=== PATIENT | female | born 1985 | race African-American/Black ===

== ENCOUNTER 2016-06-25 23:49 | Emergency (ER) | payer SELFPAY ==
[2016-06-26 00:32] LABS: Pregnancy Test - Urine (BHCG) POSITIVE (NEGATIVE)
[2016-06-26 00:33] LABS: Pregu Control Bar Appear? YES (CONTROL BAR); Specific Gravity 1.025 (1.002-1.036)
== END 2016-06-26 00:46 | disposition home or self-care (01) ==
LOC: MADERS 23:49
DX: Z32.01 Encounter for pregnancy test, result positive (principal); I10 Essential (primary) hypertension; F32.9 Major depressive disorder, single episode, unspecified; Z79.899 Other long term (current) drug therapy
CPT/HCPCS: 81025; 99283

== ENCOUNTER 2016-08-07 09:14 | Outpatient (CLI) | payer OTHER | END 2016-08-07 09:15 | disposition home or self-care (01) | LOC: MADLAB 09:14 | PROVIDERS: ATTEND Family Medicine | DX: Z13.79 Encounter for other screening for genetic and chromosomal anomalies (principal) ==

== ENCOUNTER 2016-10-07 04:43 | Emergency (ER) | payer OTHER ==
[2016-10-07 05:14] LABS: Clarity Hazy (Clear); Glucose, Urine (Dipstick) Negative (Negative); Leukocyte Small (Negative); Nitrite Negative (Negative); Protein, Urine (Dipstick) Negative (Neg-Trace); pH, Urine 6.5 (5.0-9.0)
[2016-10-07 05:15] LABS: Bacteria/HPF 3+ HPF (None Seen); Bilirubin Negative (Negative); Blood, Urine Small (Negative); Transitional Epithelial 0-3 HPF (0-3); Urobilinogen 0.2 mg/dL (0.2-1.0); WBC/HPF 21-50 HPF (0-3); Yeast-All Forms 1+ HPF (None Seen)
[2016-10-07] MEDS ORDERED: Acetaminophen 500 MG TAB ONE (05:20)
[2016-10-07 06:15] LABS: ALT (SGPT) 12 U/L (8-55); Albumin 3.8 g/dL (3.5-5.0); Alkaline Phosphatase 55 U/L (40-150); Anion Gap 15 mmol/L (10-20); BUN (Urea Nitrogen) 6 mg/dL (7.0-18.7); Bilirubin, Total Less than 0.3 mg/dL (0.2-1.2); Calc. Creatinine Clearance 0 mL/min (70-130); Calcium 9.8 mg/dL (7.8-10.44); Carbon Dioxide 19 mmol/L (22-29); Chloride 108 mmol/L (98-107); Estimated GFR-MDRD Greater than 90; Globulin 3.4 g/dL (2.4-3.5); Glucose 86 mg/dL (70-105); Potassium 3.3 mmol/L (3.5-5.1); Protein, Total 7.2 g/dL (6.0-8.3); Sodium 139 mmol/L (136-145)
[2016-10-07 06:21] LABS: Hemoglobin 10.2 g/dL (12.0-16.0); Mean Corpuscular HGB CONC 31.9 g/dL (32.0-36.0); Mean Corpuscular Hemoglobin 27.2 pg (27.0-31.0); Mean Corpuscular Volume 85.3 fl (81.0-99.0); Mean Platelet Volume 9.4 fL (7.4-10.4); Platelet Count 201 thou/uL (130-400); RBC Distribution Width 13.1 % (11.5-14.5); Red Blood Cell (RBC) Count 3.75 mill/uL (4.20-5.40); White Blood Cell (WBC) Count 11.1 thou/uL (4.8-10.8)
[2016-10-07 06:36] LABS: Anisocytosis SLIGHT = 6-15 cells (100X) (0-5/hpf); Lymphocytes 27 % (21-51); MDiff Complete? YES; Manual Diff?? YES; Monocytes 5 % (0-10); Neutrophil 68 % (42-75); PLT Morphology Comment Appears Adequate
[2016-10-07 06:38] LABS: AST (SGOT) 30 U/L (5-34)
[2016-10-07] MEDS ORDERED: Sodium Chloride 0.9% 1,000 ML BAG ONE (06:50)
[2016-10-07 07:38] LABS: Bilirubin Negative (Negative); Blood, Urine Trace (Negative); Clarity Clear (Clear); Glucose, Urine (Dipstick) Negative (Negative); Leukocyte Negative (Negative); Nitrite Negative (Negative); Protein, Urine (Dipstick) Negative (Neg-Trace); Urobilinogen 0.2 mg/dL (0.2-1.0)
[2016-10-07 07:40] LABS: Bacteria/HPF Rare-Few HPF (None Seen); RBC/HPF 0-3 HPF (0-3); Squamous Epithelial 0-3 HPF (0-3); WBC/HPF 0-3 HPF (0-3)
--- NOTE | 2016-10-07 08:33 | ULT ---
PRELIMINARY REPORT/[facility]/EMERGENCY AFTER HOURS PROCEDURE: EXAM: US Retroperitoneal Limited, Renal CLINICAL HISTORY: 31 years old, female; Pain; Abdominal pain; Flank; Right; ; Patient HX: Rt flank pain since yesterday; Progressively getting worse; Did bilateral renal ultrasound; Additional info: Patient is 23 weeks ; She is having rt flank pain since yesterday, progressively getting worse TECHNIQUE: Real-time ultrasound of the retroperitoneum (limited) with image documentation. COMPARISON: No relevant prior studies available. FINDINGS: Right kidney: The right kidney measures 11.2 x 3.9 x 5.4 cm. No stones. No hydronephrosis. Left kidney: The left kidney measures 10.4 x 5.6 x 2.8 cm. No stones. No hydronephrosis. Bladder: The urinary bladder measures 2.9 x 2.6 x 2.9 cm (19 mL). After voiding the urinary bladder measures 1.3 x 1.3 x 2.0 cm (1.8 mL). Other findings: There is an intrauterine gestation with fetus in vertex presentation and posterior/f undal placenta. The heart rate is 155 bpm. IMPRESSION: 1. No significant abnormality identified. 2. Intrauterine gestation. Thank you for allowing us to participate in the care of your patient. Dictated and Authenticated by: Gopi Oakes MD 10/07/2016 7:21 AM Central Time ([place] \T\ [place]) FINAL REPORT EMERGENT AFTER HOURS STUDY ULTRASOUND RETROPERITONEUM COMPLETE: (RENAL) HISTORY: A 31-year-old female, 23 weeks , with acute right flank pain. FINDINGS: An intrauterine gestation is visualized. Maternal cervix is poorly visualized. The urinary bladder volume is small initially, approximately 20 mL, and is nearly empty after voiding, at the end of th e study. At the lower pole of the right kidney, there is a small, hyperechoic, approximately 3 to 7 mm focus, producing acoustic shadowing, which is probably a calculus. It may correspond to the tin y lower pole calculus demonstrated on 11/18/[address] This is a minor disagreement with the preliminary report by [facility]. There is no major disagreement with the [facility] preliminary report s tatement, stating that there is no hydronephrosis bilaterally. The right kidney measures 11 x 5.5 x 4 cm. The left kidney measures 10.5 x 4.5 x 5.5 cm. No moderate sized or large solid or cystic geo l mass is identified. IMPRESSION: 1. No obstructive uropathy. No hydronephrosis. 2. Possible right nephrolithiasis: questionable small right renal lower pole calculus. ANNABELLE Voss POS: [facility]
== END 2016-10-07 08:02 | disposition home or self-care (01) ==
LOC: MADERS 04:43
DX: O99.89 Other specified diseases and conditions complicating pregnancy, childbirth and the puerperium (principal); R10.9 Unspecified abdominal pain; O99.342 Other mental disorders complicating pregnancy, second trimester; F32.9 Major depressive disorder, single episode, unspecified; O16.2 Unspecified maternal hypertension, second trimester; Z3A.23 23 weeks gestation of pregnancy
CPT/HCPCS: 36415; 51701; 76770; 80053; 81003; 81015; 85025; 87086; 96360; A4353; J7050

== ENCOUNTER 2016-10-30 22:12 | Outpatient (CLI) | payer OTHER | END 2016-10-30 22:13 | disposition home or self-care (01) | LOC: MADLABBHPM 22:12 | PROVIDERS: ATTEND Family Medicine | DX: O09.892 Supervision of other high risk pregnancies, second trimester (principal) | CPT/HCPCS: 87086 ==

== ENCOUNTER 2016-11-13 14:53 | Outpatient (CLI) | payer OTHER | END 2016-11-13 14:54 | disposition home or self-care (01) | LOC: MADLABBHPM 14:53 | PROVIDERS: ATTEND Family Medicine | DX: O09.893 Supervision of other high risk pregnancies, third trimester (principal) | CPT/HCPCS: 36415; 87077; 87086; 87480; 87510; 87660 ==

== ENCOUNTER 2016-11-27 11:34 | Emergency (ER) | payer OTHER ==
[~2016-11-27 11:34] MED LIST: Sodium Chloride 0.9% 1,000 ML BAG ONE
[2016-11-27] MEDS ORDERED: Magnesium Sulfate 2 GM/NS 0.9% 50 ML BAG ONE (12:03)
== END 2016-11-27 12:23 | disposition short-term general hospital (02) ==
LOC: MADERS 11:34
DX: O14.03 Mild to moderate pre-eclampsia, third trimester (principal); I10 Essential (primary) hypertension; F32.9 Major depressive disorder, single episode, unspecified
CPT/HCPCS: 96361; 96374; J3475; J7050

== ENCOUNTER 2017-01-10 07:15 | Emergency (ER) | payer OTHER ==
[2017-01-10] MEDS ORDERED: HYDROcodone/Acetaminophen 10/325 mg Tablet ONE (07:56)
[2017-01-10] MEDS ORDERED: cefTRIAXone\\ROCEPHIN 1 GM VIAL ONE (07:56)
[2017-01-10] MEDS ORDERED: predniSONE 20 MG TAB ONE (07:57)
[2017-01-10] MEDS ORDERED: Lidocaine 1% 20 ML MDV ONE (08:38)
== END 2017-01-10 08:18 | disposition home or self-care (01) ==
LOC: MADERS 07:15
DX: B34.9 Viral infection, unspecified (principal); J02.9 Acute pharyngitis, unspecified; I10 Essential (primary) hypertension; F32.9 Major depressive disorder, single episode, unspecified
CPT/HCPCS: 96372; J0696; J2001; J7506

== ENCOUNTER 2017-12-06 23:14 | Emergency (ER) | payer BC, OTHER ==
[2017-12-06 23:53] LABS: Bilirubin Negative (Negative); Blood, Urine Negative (Negative); Glucose, Urine (Dipstick) Negative (Negative); Leukocyte Trace (Negative); Nitrite Positive (Negative); Protein, Urine (Dipstick) Trace mg/dL (Neg-Trace); Specific Gravity, Urine 1.025 (1.005-1.030); Urobilinogen 0.2 mg/dL (0.2-1.0); pH, Urine 6.5 (5.0-9.0)
[2017-12-06 23:54] LABS: Bacteria/HPF 4+ HPF (None Seen); Clarity Hazy (Clear); RBC/HPF 0-3 HPF (0-3); Squamous Epithelial 0-3 HPF (0-3)
[2017-12-06 23:55] LABS: Pregnancy Test - Urine (BHCG) Negative (Negative); Pregu Control Background? CLEAR/WHITE (CLR/WHITE); Pregu Control Bar Appear? YES (CONTROL BAR); Specific Gravity 1.025 (1.002-1.036)
--- NOTE | 2017-12-06 23:55 | RAD ---
CHEST ONE VIEW: HISTORY: Syncope. FINDINGS: The cardiac silhouette is magnified by projection. The pulmonary vasculature is unremarkable. The m ediastinum is midline, allowing for slight rightward rotation of the patient. No lobar consolidation or evidence of pneumothorax. 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 IMPRESSION: No active cardiopulmonary abnormalities are demonstrated. POS: [facility]
[2017-12-07 00:15] LABS: #Basophils 0.1 thou/uL (0.0-0.2); #Eosinphils 0.1 thou/uL (0.0-0.7); #Lymphocytes 2.2 thou/uL (1.20-3.40); #Monocytes 0.5 thou/uL (0.11-0.59); #Neutrophils 4.7 thou/uL (1.40-6.50); %Basophils 1.6 % (0.0-1.0); %Eosinophils 1.6 % (0.0-10.0); %Lymphocytes 28.8 % (21.0-51.0); %Monocytes 6.7 % (0.0-10.0); %Neutrophils 61.2 % (42.0-75.0); Hemoglobin 12.9 g/dL (12.0-16.0); Mean Corpuscular HGB CONC 30.9 g/dL (32.0-36.0); Mean Corpuscular Hemoglobin 25.9 pg (27.0-31.0); Mean Corpuscular Volume 83.8 fL (78.0-98.0); Mean Platelet Volume 9.2 fL (7.4-10.4); Platelet Count 186 thou/uL (130-400); RBC Distribution Width 13.7 % (11.5-14.5); Red Blood Cell (RBC) Count 4.97 mill/uL (4.20-5.40); White Blood Cell (WBC) Count 7.6 thou/uL (4.8-10.8)
[2017-12-07 00:31] LABS: ALT (SGPT) 10 U/L (8-55); AST (SGOT) 10 U/L (5-34); Albumin 4.7 g/dL (3.5-5.0); Alkaline Phosphatase 48 U/L (40-150); Anion Gap 13 mmol/L (10-20); BUN (Urea Nitrogen) 11 mg/dL (7.0-18.7); Bilirubin, Total 0.4 mg/dL (0.2-1.2); Calc. Creatinine Clearance 0 mL/min (70-130); Calcium 10.1 mg/dL (7.8-10.44); Carbon Dioxide 23 mmol/L (22-29); Chloride 109 mmol/L (98-107); Estimated GFR-MDRD Greater than 90; Globulin 2.8 g/dL (2.4-3.5); Glucose 84 mg/dL (70-105); Potassium 3.5 mmol/L (3.5-5.1); Protein, Total 7.5 g/dL (6.0-8.3); Sodium 141 mmol/L (136-145)
[2017-12-07 00:32] LABS: CKMB 0.9 ng/mL (0-6.6); Troponin I Less than 0.010 ng/mL (< 0.028)
[2017-12-07] MEDS ORDERED: Nitrofurantoin Monohyd/M-Cryst 100 MG CAP ONE (00:33)
== END 2017-12-07 00:40 | disposition home or self-care (01) ==
LOC: MADERS 23:14
DX: R55 Syncope and collapse (principal); N39.0 Urinary tract infection, site not specified; R42 Dizziness and giddiness; I10 Essential (primary) hypertension; F32.9 Major depressive disorder, single episode, unspecified
CPT/HCPCS: 36415; 71045; 80053; 81003; 81015; 81025; 82553; 84484; 85025; 85379; 87077; 87086; 87186; 93005; 94760

== ENCOUNTER 2019-02-17 06:18 | Emergency (ER) | payer BC, OTHER ==
[2019-02-17] MEDS ORDERED: Sodium Chloride 0.9% 1,000 ML ONE (06:58)
[2019-02-17] MEDS ORDERED: hydrALAZINE 20 MG/ML VIAL ONE (06:58)
[2019-02-17 07:19] LABS: Hemoglobin 13.4 g/dL (12.0-16.0); Mean Corpuscular HGB CONC 29.4 g/dL (32.0-36.0); Mean Corpuscular Hemoglobin 24.4 pg (27.0-31.0); Mean Corpuscular Volume 83.1 fL (78.0-98.0); Platelet Count 187 thou/uL (130-400); White Blood Cell (WBC) Count 7.5 thou/uL (4.8-10.8)
[2019-02-17 07:23] LABS: Prothrombin Time 13.1 SEC (12.0-14.7)
[2019-02-17 07:27] LABS: ALT (SGPT) 12 U/L (8-55); AST (SGOT) 16 U/L (5-34); Albumin 3.1 g/dL (3.5-5.0); Alkaline Phosphatase 312 U/L (40-110); Anion Gap 11 mmol/L (10-20); BUN (Urea Nitrogen) 11 mg/dL (7.0-18.7); Bilirubin, Total 0.2 mg/dL (0.2-1.2); Calc. Creatinine Clearance 0 mL/min (70-130); Calcium 9.5 mg/dL (7.8-10.44); Carbon Dioxide 23 mmol/L (22-29); Chloride 108 mmol/L (98-107); Estimated GFR-MDRD 85; Globulin 3.1 g/dL (2.4-3.5); Glucose 82 mg/dL (70-105); Potassium 4.2 mmol/L (3.5-5.1); Protein, Total 6.2 g/dL (6.0-8.3); Sodium 138 mmol/L (136-145)
[2019-02-17 07:34] LABS: Lymphocytes 31 % (21-51); MDiff Complete? YES; Monocytes 4 % (0-10); Neutrophil 65 % (42-75); Platelet Morphology Comment Appears Adequate; RBC Morphology Normal
== END 2019-02-17 07:20 | disposition short-term general hospital (02) ==
LOC: MADERS 06:18
DX: O60.03 Preterm labor without delivery, third trimester (principal); O13.3 Gestational [pregnancy-induced] hypertension without significant proteinuria, third trimester; O99.343 Other mental disorders complicating pregnancy, third trimester; F32.9 Major depressive disorder, single episode, unspecified; Z3A.39 39 weeks gestation of pregnancy
CPT/HCPCS: 80053; 85025; 85610; 96374; J0360; J7050

== ENCOUNTER 2021-10-30 15:00 | Emergency (ER) | payer OTHER ==
[~2021-10-30 15:00] MED LIST changes: +Iopamidol 370 76% 125 ML VIAL FS ONE; -Sodium Chloride 0.9% 1,000 ML BAG ONE
[2021-10-30] MEDS ORDERED: Ondansetron PF 4 MG/2 ML Vial ONE (15:22)
[2021-10-30] MEDS ORDERED: Morphine 4 MG/ML VIAL ONE (15:22)
[2021-10-30] MEDS ORDERED: Lidocaine Viscous Sol 2% 15 ml UD Cup ONE (15:22)
[2021-10-30] MEDS ORDERED: Mag-Al Plus 1200 MG/1200 MG/120 MG/30 ML UDCUP ONE (15:22)
[2021-10-30 15:27] LABS: #Basophils 0.1 thou/uL (0.0-0.2); #Eosinphils 0.2 thou/uL (0.0-0.7); #Monocytes 0.7 thou/uL (0.11-0.59); #Neutrophils 6.8 thou/uL (1.40-6.50); %Basophils 0.9 % (0.0-1.0); %Eosinophils 2.4 % (0.0-10.0); %Lymphocytes 10.9 % (21.0-51.0); %Monocytes 8.2 % (0.0-10.0); %Neutrophils 77.6 % (42.0-75.0); Hemoglobin 11.8 g/dL (12.0-16.0); Mean Corpuscular HGB CONC 30.2 g/dL (32.0-36.0); Mean Corpuscular Hemoglobin 25.5 pg (27.0-31.0); Mean Corpuscular Volume 84.4 fL (78.0-98.0); Mean Platelet Volume 9.5 fL (7.4-10.4); Platelet Count 246 thou/uL (130-400); RBC Distribution Width 12.4 % (11.5-14.5); Red Blood Cell (RBC) Count 4.64 mill/uL (4.20-5.40); White Blood Cell (WBC) Count 8.8 thou/uL (4.8-10.8)
[2021-10-30 15:33] LABS: BHCG - Serum Negative (NEGATIVE); Pregs Control Background? CLEAR/WHITE (CLR/WHITE); Pregs Control Bar Appear? YES (CONTROL BAR)
[2021-10-30 15:42] LABS: ALT (SGPT) 12 U/L (8-55); AST (SGOT) 18 U/L (5-34); Albumin 4.3 g/dL (3.5-5.0); Alkaline Phosphatase 46 U/L (40-110); Anion Gap 14 mmol/L (10-20); BUN (Urea Nitrogen) 12 mg/dL (7.0-18.7); Bilirubin, Total 0.5 mg/dL (0.2-1.2); CK (CPK) 147 U/L (29-168); Calc. Creatinine Clearance 0 mL/min (70-130); Calcium 10.1 mg/dL (7.8-10.44); Carbon Dioxide 21 mmol/L (22-29); Chloride 111 mmol/L (98-107); Estimated GFR 95; Globulin 2.9 g/dL (2.4-3.5); Glucose 73 mg/dL (70-105); Lipase 19 U/L (8-78); Protein, Total 7.2 g/dL (6.0-8.3); Sodium 142 mmol/L (136-145)
[2021-10-30] MEDS ORDERED: Lactated Ringer's 1,000 ML ONE (15:54)
[2021-10-30] MEDS ORDERED: Aspirin Chewable 81 MG TAB ONE (16:22)
[2021-10-30 18:40] LABS: Bilirubin Negative (Negative); Blood, Urine Large (Negative); Clarity Clear (Clear); Glucose, Urine (Dipstick) Negative (Negative); Ketone, Urine Negative (Negative); Leukocyte Negative (Negative); Nitrite Negative (Negative); Protein, Urine (Dipstick) Negative (Neg-Trace)
[2021-10-30 19:02] LABS: Specific Gravity, Urine 1.005 (1.002-1.036)
[2021-10-30 19:05] LABS: Bacteria/HPF Rare-Few HPF (None Seen); RBC/HPF 0-3 HPF (0-3)
[2021-10-30 19:12] LABS: Lactic Acid 1.5 mmol/L (0.5-2.2)
== END 2021-10-30 19:44 | disposition home or self-care (01) ==
LOC: MADERS 15:00
DX: E86.0 Dehydration (principal); K76.89 Other specified diseases of liver; R59.1 Generalized enlarged lymph nodes; I10 Essential (primary) hypertension
CPT/HCPCS: 36415; 71045; 71275; 74174; 80053; 81003; 81015; 82550; 83605; 83690; 84484; 84703; 85025; 85379; 93005; 94760; 96361; 96374; 96375; J2270; J2405; J7120; Q9967

== ENCOUNTER 2023-03-14 14:17 | Emergency (ER) | payer OTHER | END 2023-03-14 15:24 | disposition home or self-care (01) | LOC: MADERS 14:17 | DX: K04.7 Periapical abscess without sinus (principal); I10 Essential (primary) hypertension | CPT/HCPCS: 99283 ==

== ENCOUNTER 2024-02-27 20:22 | Emergency (ER) | payer BC, OTHER ==
[2024-02-27] MEDS ORDERED: Acetaminophen 500 MG TAB ONE (20:55)
[2024-02-27] MEDS ORDERED: AMOXicillin 250 MG CAP ONE (20:55)
== END 2024-02-27 21:04 | disposition home or self-care (01) ==
LOC: MADERS 20:22
DX: K08.89 Other specified disorders of teeth and supporting structures (principal); I10 Essential (primary) hypertension; F17.210 Nicotine dependence, cigarettes, uncomplicated
CPT/HCPCS: 99282

== ENCOUNTER 2024-02-28 11:03 | Emergency (ER) | payer OTHER ==
[2024-02-28] MEDS ORDERED: Bupivacaine PF 0.5% 30 ML VIAL ONE (11:27)
== END 2024-02-28 12:03 | disposition home or self-care (01) ==
LOC: MADERS 11:03
DX: K08.89 Other specified disorders of teeth and supporting structures (principal); K04.7 Periapical abscess without sinus; I10 Essential (primary) hypertension; F17.210 Nicotine dependence, cigarettes, uncomplicated
CPT/HCPCS: 99282; J0665